=== PATIENT | female | born 1935 | race Caucasian/White ===

== ENCOUNTER 2016-09-10 16:35 | Emergency (ER) | payer MEDICARE, MEDICAID ==
[2016-09-10 17:52] LABS: CHLORIDE,CL 105 mmol/L (98-107); SODIUM,NA 142 mmol/L (136-145)
--- NOTE | 2016-09-10 18:11 | ER ---
Date of Service: 09/10/2016 SUBJECTIVE: Jumana presents to the emergency room with stroke-like symptoms. The patient has a history of previous cerebral vascular disease. The information was presented to us secondhand. The patient was transported to the emergency room by her [id number]. Apparently, the patient complained to her son at approximately 3 o'clock p.m. this afternoon that she was having difficulties with speech and was having problems with moving her right lower extremity. The patient also complained of some heaviness to her right upper extremity. The patient recognized and family recognized the symptoms as a stroke and subsequently transported her here to [place]. They requested that the Ambulance transport the patient directly to [place], but of course, she would need to be seen here before being transferred. PAST MEDICAL HISTORY: 1. Previous cerebrovascular disease. To note, I do not have her medical records available. This information was gleaned from the family. 2. Dyslipidemia. 3. Hypertension. MEDICATIONS: 1. Lyrica. 2. Gemfibrozil. 3. Dexilant. 4. Myrbetriq. 5. Moexipril hydrochlorothiazide. 6. Pravastatin. 7. Escitalopram. 8. Carvedilol. ALLERGIES: NKDA. REVIEW OF SYSTEMS: Unobtainable as the patient is experiencing severe expressive aphasia. She did affirm to the negative that she was not experiencing any chest pain, shortness of breath or headache and was not experiencing any nausea or vomiting. PHYSICAL EXAMINATION: General: This is an 81-year-old female patient, who is in no acute distress. Vital signs: Please see stroke code documentation. Skin: Warm, pale, and dry. HEENT: Head is normocephalic, atraumatic. Eyes, PERRLA. Extraocular movements are intact. Mouth, oral mucosa is moist. No erythema or exudate noted in the hypopharynx. Neck: Supple without masses. There is no lymphadenopathy. Lungs: Clear to auscultation. Heart: Regular rate and rhythm. Abdomen: Soft, nontender. There is no hepatosplenomegaly or masses noted. Extremities: Without edema. Neurologic: The patient is alert. NIH stroke scale was performed. She did have some mild right-sided upper and lower extremity weakness approximately 3/5 as compared to 4/5 on the left. The patient also did have some slight right- sided facial droop. Her total NIH stroke scale score was 12. She had no pronator drift, but she did complain of some right upper extremity heaviness. Her gait was slow and shuffling when getting up to transfer from the wheelchair to the bed. DIAGNOSTIC DATA: CT scan of the patient's brain was obtained. No evidence of any obvious hemorrhage noted; however, we still are awaiting official CT results. CBC; WBCs 6.3, hemoglobin is 12.7, platelets are 176. Troponin was 0.00. Remainder of patient's labs are pending. A 12-lead EKG was obtained showing a sinus rhythm without any acute ST or T-wave abnormalities. ASSESSMENT: Cerebrovascular accident. PLAN: I spoke with Dr. Powell, the neurologist on-call at [facility]. The patient will be transported there via ground ambulance. Again, information was difficult to come by as she was picked up by someone and driven to the hospital. Again, last known well approximately 3 o'clock this afternoon. MWK: 09/10/2016 17:36:04 MODL: 09/10/2016 18:02:15 /[id number]
== END 2016-09-10 17:15 | disposition short-term general hospital (02) ==
LOC: VM.ED 16:35
DX: I63.9 Cerebral infarction, unspecified (principal); I10 Essential (primary) hypertension; E78.5 Hyperlipidemia, unspecified
CPT/HCPCS: 70450; 80053; 82550; 82553; 82962; 84484; 85025; 93005; 99285-GF; 99291